=== PATIENT | male | born 1965 | race Two or more races ===

== ENCOUNTER 2024-09-29 18:06 | Emergency (ER) | payer OTHER ==
[~2024-09-29] VITALS: Ht 172.7 cm; Wt 54.4 kg
[2024-09-29] MEDS ORDERED: ATIVAN0.5 M1 (18:16)
[2024-09-29] MEDS ORDERED: MOTRIN IB200 M1 (18:16)
[2024-09-29] MEDS ORDERED: ACETAMINOPHEN 500 MG GEL..CAP PO ONE (18:31)
[2024-09-29 21:40] LABS: HEMATOCRIT 43.6 % (39.0-48.0); HEMOGLOBIN 14.7 g/dL (13-16.00); MEAN CELL VOLUME 86.2 fL (80.0-100.00); MEAN CORPUSCULAR HGB CONC 33.6 g/dl (32.0-36.0); PLATELET COUNT 299 K/uL (150-450); RED BLOOD COUNT 5.05 M/uL (4.00-6.00); RED CELL DISTRIBUTION WIDTH 14.3 % (11.5-14.5)
[2024-09-29 22:07] LABS: ALBUMIN 3.1 gm/dL (3.4-5.0); BILIRUBIN TOTAL 0.91 mg/dL (0.3-1.2); CALCIUM 8.8 mg/dL (8.5-10.1); CREATININE SERUM 1.43 mg/dL (0.70-1.30); GFR 50.44; POTASSIUM 3.66 mEq/L (3.5-5.1); TOTAL PROTEIN 7.1 gm/dL (6.4-8.2)
[2024-09-29] MEDS ORDERED: KETOROLAC TROMETHAMINE 60 MG VIAL IM ONE ×2 (23:41→23:45)
== END 2024-09-30 00:32 | disposition home or self-care (01) ==
LOC: ER 18:08
PROVIDERS: Emergency Medicine
DX: C25.7 Malignant neoplasm of other parts of pancreas (principal); C78.7 Secondary malignant neoplasm of liver and intrahepatic bile duct; C79.00 Secondary malignant neoplasm of unspecified kidney and renal pelvis; F32.89 Other specified depressive episodes; I10 Essential (primary) hypertension; F41.8 Other specified anxiety disorders; Z20.822 Contact with and (suspected) exposure to COVID-19

== ENCOUNTER 2024-10-09 23:59 | Inpatient (IN) | payer OTHER ==
[~2024-10-09] VITALS: Ht 172.7 cm; Wt 65.8 kg
[~2024-10-09 23:59] MED LIST: ATIVAN0.5 M1; MOTRIN IB200 M1
[2024-10-10] MEDS ORDERED: METOPROLOL SUCC50 MG PO (00:09)
--- NOTE | 2024-10-10 00:10 | NUR ---
SE RECIBE PACIENTE ALERTA Y ORIENTADO X3 REFIERE VENIR POR DOLOR ABDOMINAL CON SINTOMAS DE NAUSEAS QUE INICIO HOY. PACIENTE DESCRIBE EL DOLOR ROSENDO OPRESIVO
[2024-10-10] MEDS ORDERED: 0.9 % SODIUM CHLORIDE 1,000 ML IV STA (01:16)
[2024-10-10] MEDS ORDERED: MEPERIDINE HCL/PF 50 MG/ML VIAL IM STA (01:16)
[2024-10-10] MEDS ORDERED: PROMETHAZINE HCL 50 MG/ML AMPUL IM STA (01:17)
[2024-10-10] MEDS ORDERED: HYOSCYAMINE SULFATE 0.125 MG TAB.SUBL SL STA (01:18)
[2024-10-10] MEDS ORDERED: PROMETHAZINE HCL 50 MG/ML AMPUL IM ONE (01:36)
[2024-10-10] MEDS ORDERED: HYOSCYAMINE SULFATE 0.125 MG TAB.SUBL ONE (01:37)
--- NOTE | 2024-10-10 01:52 | NUR ---
PACIENTE EVALUADO POR DA ORDEN DE COLECTAR MUESTRAS DE LAB, MEDICAMENTOS Y ESTUDIOS DIAGNOSTICOS. RN CANCEL REALIZA ORDENES AMEIRCO ORDEN MEDICA, ORIENTA A FAMILIAR Y A PACIENTE.
[2024-10-10 02:25] LABS: HEMATOCRIT 41.4 % (39.0-48.0); HEMOGLOBIN 14.2 g/dL (13-16.00); MEAN CORPUSCULAR HEMOGLOBIN 29.1 pg (27.00-32.0); MEAN CORPUSCULAR HGB CONC 34.2 g/dl (32.0-36.0); PLATELET COUNT 302 K/uL (150-450); RED BLOOD COUNT 4.87 M/uL (4.00-6.00); RED CELL DISTRIBUTION WIDTH 15.2 % (11.5-14.5)
[2024-10-10 02:34] LABS: INR 1.42; PARTIAL THROMBOPLASTIN TIME 30.2 SECONDS (22.0-34.0)
[2024-10-10 02:53] LABS: ALBUMIN 2.2 gm/dL (3.4-5.0); BILIRUBIN TOTAL 5.96 mg/dL (0.3-1.2); CALCIUM 8.9 mg/dL (8.5-10.1); CREATININE SERUM 1.95 mg/dL (0.70-1.30); GFR 35.27; GLOBULINA 3.3 G/DL (2.4-3.5); POTASSIUM 4.72 mEq/L (3.5-5.1); TOTAL PROTEIN 5.5 gm/dL (6.4-8.2)
[2024-10-10 02:55] LABS: PROTHROMBIN TIME 15.1 SECONDS (9.0-11.5)
--- NOTE | 2024-10-10 07:15 | NUR ---
SE RECIBE PTE ALERTA ORIENTADO X3.VENOPUNCION PATENTE AIDEE DE EDEMA Y ERITEMA RECIBIENDO 0.9 NSS BAJANDO 120ML/HR.PENDIENTE CONSULTA DX LEUKEMOID.
[2024-10-10 09:20] VITALS: BP 115/70
[2024-10-10] MEDS ORDERED: ONDANSETRON HCL 4 MG in 0.9 % SODIUM CHLORIDE 50 ML IV PRN (12:15)
[2024-10-10 12:40] LABS: PH,URINE 5.5 (5.0-8.0); URINE APPEARANCE Cloudy; URINE BILIRRUBIN Moderate (NEGATIVE); URINE BLOOD Negative; URINE COLOR Dark Yellow; URINE GLUCOSE Negative (NEGATIVE); URINE KETONE Negative (NEGATIVE); URINE LEUKOCYTE Trace; URINE NITRATE Negative; URINE PROTEIN Trace (NEGATIVE)
[2024-10-10 12:43] LABS: URINE BACTERIA 13.4 uL (0.0-1933); URINE CAST 15.17 uL (0.0-1.40); URINE EPITHELIAL CELLS 99.5 uL (0.0-38.8); URINE RBC 14.8 uL (0.0-20.8); URINE WBC 12.3 uL (0.0-23.2)
[2024-10-10] MEDS ORDERED: FAMOTIDINE/PF 20 MG/2 ML VIAL IV NR (13:00)
[2024-10-10 14:40] LABS: ALBUMIN 2.3 gm/dL (3.4-5.0); BILIRUBIN TOTAL 6.01 mg/dL (0.3-1.2); BILIRUBIN,CONJUGATED 4.99 mg/dL (0.0-0.2); BILIRUBIN,UNCONJUGATED 1.02 mg/dL (0.0-0.6); TOTAL PROTEIN 5.7 gm/dL (6.4-8.2)
[2024-10-10 16:28] VITALS: BP 120/75
[2024-10-10] MEDS ORDERED: MORPHINE SULFATE 2 MG/ML CARTRIDGE IV PRN (17:15)
[2024-10-10] MEDS ORDERED: MAGNESIUM HYDROXIDE 400 MG/5 ML ML PO STA (20:48)
[2024-10-10] MEDS ORDERED: MORPHINE SULFATE 4 MG/ML VIAL IV PRN (21:00)
[2024-10-10] MEDS ORDERED: MAGNESIUM HYDROXIDE 30 ML BLIST.PACK PO ONE (21:33)
[2024-10-11 01:38] VITALS: BP 122/79; O2SAT 97
[2024-10-11 08:37] LABS: HEMATOCRIT 42.4 % (39.0-48.0); HEMOGLOBIN 14.3 g/dL (13-16.00); MEAN CORPUSCULAR HEMOGLOBIN 28.7 pg (27.00-32.0); MEAN CORPUSCULAR HGB CONC 33.8 g/dl (32.0-36.0); PLATELET COUNT 284 K/uL (150-450); RED BLOOD COUNT 4.99 M/uL (4.00-6.00); RED CELL DISTRIBUTION WIDTH 15.6 % (11.5-14.5)
[2024-10-11] MEDS ORDERED: MAGNESIUM HYDROXIDE 30 ML BLIST.PACK PO SCH (09:00)
[2024-10-11] MEDS ORDERED: ENOXAPARIN SODIUM 40 MG/0.4 ML SYRINGE SUBCUTANEO SCH (09:00)
[2024-10-11] MEDS ORDERED: FAMOTIDINE/PF 20 MG/2 ML VIAL IV SCH (09:00)
[2024-10-11 09:30] LABS: ALBUMIN 2.1 gm/dL (3.4-5.0); BILIRUBIN TOTAL 6.96 mg/dL (0.3-1.2); CALCIUM 8.8 mg/dL (8.5-10.1); CREATININE SERUM 1.34 mg/dL (0.70-1.30); GFR 54.37; GLOBULINA 3.1 G/DL (2.4-3.5); POTASSIUM 4.81 mEq/L (3.5-5.1); TOTAL PROTEIN 5.2 gm/dL (6.4-8.2)
[2024-10-11 09:41] VITALS: BP 99/54; O2SAT 94
[2024-10-11 17:31] VITALS: BP 116/77
[2024-10-11 19:42] LABS: BILI PERITONEAL FLUID 2.81 mg/dl; TP PERITONEAL FLUID 2.1 g/dl
[2024-10-12 03:48] VITALS: BP 121/62
[2024-10-12 05:39] LABS: HEMATOCRIT 41.8 % (39.0-48.0); HEMOGLOBIN 13.8 g/dL (13-16.00); MEAN CELL VOLUME 86.4 fL (80.0-100.00); MEAN CORPUSCULAR HEMOGLOBIN 28.6 pg (27.00-32.0); MEAN CORPUSCULAR HGB CONC 33.1 g/dl (32.0-36.0); PLATELET COUNT 237 K/uL (150-450); RED BLOOD COUNT 4.84 M/uL (4.00-6.00); RED CELL DISTRIBUTION WIDTH 15.8 % (11.5-14.5)
[2024-10-12 06:35] LABS: CALCIUM 8.3 mg/dL (8.5-10.1); CREATININE SERUM 1.14 mg/dL (0.70-1.30); GFR 65.52; POTASSIUM 4.92 mEq/L (3.5-5.1)
[2024-10-12] MEDS ORDERED: LORazepam 0.5 MG TABLET PO SCH (09:00)
[2024-10-12 09:27] VITALS: BP 103/69
[2024-10-12 18:07] VITALS: BP 102/69
[2024-10-12] MEDS ORDERED: fentaNYL 25 MCG PATCH.TD72 TD SCH (18:30)
[2024-10-12] MEDS ORDERED: MORPHINE SULFATE 4 MG/ML VIAL IV PRN (21:15)
[2024-10-13 02:22] VITALS: BP 96/50; O2SAT 100
[2024-10-13 04:42] LABS: HEMATOCRIT 43.2 % (39.0-48.0); HEMOGLOBIN 14.8 g/dL (13-16.00); MEAN CELL VOLUME 85.4 fL (80.0-100.00); MEAN CORPUSCULAR HEMOGLOBIN 29.2 pg (27.00-32.0); MEAN CORPUSCULAR HGB CONC 34.2 g/dl (32.0-36.0); PLATELET COUNT 234 K/uL (150-450); RED BLOOD COUNT 5.06 M/uL (4.00-6.00); RED CELL DISTRIBUTION WIDTH 16.7 % (11.5-14.5)
[2024-10-13 09:25] VITALS: BP 99/57; O2SAT 96
[2024-10-13 17:58] VITALS: BP 105/63; O2SAT 94
[2024-10-13] MEDS ORDERED: OxyCODONE HCL/APAP UD (PERCOCET) PO PRN (19:15)
[2024-10-13] MEDS ORDERED: LORazepam 1 MG TABLET PO SCH (20:00)
[2024-10-14 01:52] VITALS: BP 99/57; O2SAT 95
[2024-10-14] MEDS ORDERED: ONDANSETRON HCL 2 MG/ML VIAL ONE (07:50)
[2024-10-14] MEDS ORDERED: LORazepam 0.5 MG TABLET PO SCH (09:00)
[2024-10-14 09:09] VITALS: BP 122/61; O2SAT 97
[2024-10-14] MEDS ORDERED: ACETAMINOPHEN (20:53)
[2024-10-14] MEDS ORDERED: COD (20:53)
== END 2024-10-14 15:58 | disposition home or self-care (01) | DRG 375 ==
LOC: ER 10-10 00:01 → MEDJ 10-10 09:01 → SEC-K 10-10 09:01 → MEDJ 10-10 10:20
PROVIDERS: Radiology Vascular & Interventional Radiology; ADMIT Student in an Organized Health Care Education/Training Program; ATTEND Student in an Organized Health Care Education/Training Program
PROC: BW21ZZZ Computerized Tomography (CT Scan) of Abdomen and Pelvis (ICD-10-PCS; principal; 2024-10-10)
PROC: 0W9G3ZX Drainage of Peritoneal Cavity, Percutaneous Approach, Diagnostic (ICD-10-PCS; 2024-10-11)
DX: C19 Malignant neoplasm of rectosigmoid junction (principal); C25.9 Malignant neoplasm of pancreas, unspecified; C78.00 Secondary malignant neoplasm of unspecified lung; C78.7 Secondary malignant neoplasm of liver and intrahepatic bile duct; R18.0 Malignant ascites; G89.3 Neoplasm related pain (acute) (chronic); K59.01 Slow transit constipation; F43.21 Adjustment disorder with depressed mood

== ENCOUNTER 2024-10-14 20:17 | Emergency (ER) | payer OTHER ==
[~2024-10-14] VITALS: Ht 172.7 cm; Wt 54.4 kg
[~2024-10-14 20:17] MED LIST changes: +METOPROLOL SUCC50 MG PO
[2024-10-14] MEDS ORDERED: ACETAMINOPHEN (20:53)
[2024-10-14] MEDS ORDERED: COD (20:53)
[2024-10-14] MEDS ORDERED: LORazepam 0.5 MG TABLET PO ONE ×3 (22:00→22:15)
[2024-10-14] MEDS ORDERED: OxyCODONE HCL/APAP UD (PERCOCET) PO ONE ×2 (22:00→22:15)
== END 2024-10-14 22:19 | disposition home or self-care (01) ==
LOC: ER 20:19
DX: G89.3 Neoplasm related pain (acute) (chronic) (principal); C80.1 Malignant (primary) neoplasm, unspecified